=== PATIENT | male | born 1945 | race Caucasian/White ===

== ENCOUNTER 2023-12-08 12:28 | Inpatient (IN) | payer MEDICARE, SELFPAY ==
[2023-12-06] VITALS (7 sets, daily range): BP systolic 116–145; BP diastolic 74–129; PULSE 80–83; BMI 24.8
[2023-12-06 18:35] LABS: % Basophils 0.6 % (0-2); % Eosinophils 0.8 % (0-6); % Immature Granulocytes 0.3 % (0-0.5); % Lymphocytes 16.5 % (20.5-51.1); % Monocytes 6.6 % (1.7-9.3); % Neutrophils 75.2 % (42.2-75.2); Absolute Basophils 0.1 10^3/uL (0-0.2); Absolute Eosinophils 0.1 10^3/uL (0-0.7); Absolute Lymphocytes 1.4 10^3/uL (1.2-3.4); Absolute Monocytes 0.6 10^3/uL (0.1-0.6); Absolute Neutrophils 6.5 10^3/uL (1.4-6.5); Hematocrit 49.8 % (39.0-52.0); Hemoglobin 16.8 g/dL (13.0-18.0); Mean Corp Hgb Conc. 33.7 g/dL (33.0-37.0); Mean Corpuscular Hgb 30.3 pg (27.0-31.0); Mean Corpuscular Volume 89.7 fL (80.0-94.0); Nucleated Red Blood Cells % 0 % (-); Platelet Count 248 10^3/uL (130-400); Red Blood Cell Count 5.55 10^6/uL (4.70-6.10); Red Cell Dist. Width 13.2 % (11.5-14.5); White Blood Cell Count 8.7 10^3/uL (4.8-10.8)
[2023-12-06 18:52] LABS: ALT (SGPT) 26 U/L (0-50); AST (SGOT) 29 U/L (17-59); Albumin 4.9 g/dl (3.5-5.0); Alkaline Phosphatase 104 U/L (38-126); Blood Urea Nitrogen 19 mg/dl (9-20); Calcium 10.2 mg/dl (8.4-10.2); Carbon Dioxide 22 mmol/L (22-30); Chloride 101 mmol/L (98-107); Glucose 102 mg/dl (70-99); Potassium 4.5 mmol/L (3.5-5.1); Sodium 140 mmol/L (135-145); Total Bilirubin 1.1 mg/dl (0.2-1.3); Total Protein 7.5 g/dl (6.3-8.2); eGFR 47.65
[2023-12-06 19:02] LABS: Troponin I < 0.012 ng/ml
--- NOTE | 2023-12-06 19:16 | EDRN ---
cousin states 'I need you to know that Zeus has been sleeping for 36 hours more recently'
Pt alert and awake in waiting area. Family with pt. No acute distress.
--- NOTE | 2023-12-06 20:19 | ED.GENMED ---
History of Present Illness
General
Chief Complaint: Dizziness
Source: patient and family
Time Seen by Provider: 12/06/23 20:05
History of Present Illness
History of Present Illness:
78-year-old male presents emergency department in the presence of his cousin who also offers history with complaints of dizziness that he specifically describes as 'lightheadedness', also described as feeling like he might pass out. He denies a
sense of spinning or movement. He noticed it first yesterday while sitting in the car and it resolved shortly after. Then, around 11 AM today the sense of lightheadedness was much more intense and longer lasting. He denies associated headache,
numbness, tingling, change in vision, change in speech, a sense of imbalance, chest pain, dyspnea, abdominal pain, back pain. He denies recent trauma or falls. Patient, when asked, notes that he does have mild bilateral posterior neck discomfort
described as 'stiff' that he has noticed since today. He denies fever, chills, nausea, vomiting, or other complaints. The lightheadedness seems to be worse when he stands up but is still persistent while sitting down, relatively unchanged with
head position.
Past History
Past History
ED Past Medical History: Other (PAD, A-fib, hypertension, hypercholesterolemia)
ED Past Surgical History: Orthopedic and Other (Carotid artery stent bilateral, colectomy partial, peripheral arterial stent placement lower extremity bilaterally)
Social History
Tobacco: Former smoker
Alcohol: Occasional
Drug: None
Personal:
Living: with family
Phy Exam
Physical Exam
Physical Exam:
GENERAL: Alert , in no apparent distress
EYE: pupils equal and reactive, no nystagmus, EOMI, no photophobia
NECK: Supple, no significant adenopathy, no bruit, full range of motion, no meningismus.
ENT: o/p clr, mmm.
CARDIAC: Regular rate and rhythm .
LUNGS: Clear breath sounds bilaterally, no acute respiratory distress, no wheezes/rales/rhonchi
ABDOMEN: Soft, without focal tenderness, no r/g, no cvat
NEUROLOGICAL: Alert and oriented, no focal neuro deficits, [id number]-ye-[id number] normal, motor 5 out of 5, sensory intact, cranial nerves II through XII
SKIN: Warm and dry, skin intact.
MUSCULOSKELETAL: No edema, well perfused.
PSYCH: Normal and appropriate interaction.
Course
Orders/Labs/Results
Orders:
Orders
12/06/23 18:14
Electrocardiogram (*1) Urgent
Reason for Study: Chest Pain
EKG- Treatment ONCE
12/06/23 18:27
Complete Blood Count/With Diff Urgent
Comprehensive Metabolic Panel Urgent
Troponin I Urgent
12/06/23 20:19
Electrocardiogram (*1) Urgent
Reason for Study: Vertigo / Dizzy
EKG- Treatment ONCE
12/06/23 20:23
0.9% Sodium Chloride 500 ml [Nss] 500 ml IV BOLUS
Nursing to Place Non Medication Order As Directed
Physician Order: orthostatics please
Above order entered?: Yes
12/06/23 22:38
Urinalysis Reflex To Culture Urgent
Date Specimen was Collected: 12/06/23
Time Specimen was Collected: 20:49
Urine Microscopic Reflex Cult Urgent
Urine Culture Urgent
NUVIA Source: U
Specimen Description:
Date Specimen was Collected: 12/06/23
Time Specimen was Collected: 20:49
12/06/23 23:00
Flush (0.9% Sodium Chloride) [Flush (Nss)] See Dose Instructions IV PER PROTOCOL
12/06/23 23:16
Admit/Transfer Patient As Directed
Co-Sign Provider:
Level of Care: Observation services
Assign to:: Telemetry
Physician / Group: lindsay
Diagnosis: near syncope
Reason for Telemetry: Syncope
Date to Stop Telemetry: 12/08/23
Time to Stop Telemetry: 11:00
PRN Pain Medication Management As Directed
May give lesser potent ordered pain med per pt: Yes
preference::
Protocol:: Medication orders for pain may be administered in a
manner that supports deferring to patient preference
when the pt is:
- Requesting an ordered lesser potent pain medication.
Least to most potent pain medications are defined
as: acetaminophen < NSAID < tramadol < opioids
(morphine, oxycodone, hydromorphone).
- Requesting a lesser dose of the same medication IF
ORDERED.
- Requesting a less intrusive route of administration
if both routes are prescribed by the provider (PO <
IV).
12/06/23 23:17
Code Status As Directed
Resuscitation Status: Do not resuscitate
Reached after discussion with pt or family/Healthcare POA: Yes
DNR Bracelet Application ONCE
12/07/23 00:16
0.9% Sodium Chloride 1000 ml [Nss] 1,000 ml IV 60 mls/hr
Bisacodyl [Dulcolax] 10 mg RECTAL [id number] PRN
Docusate W/Senna [Senokot-S] 1 tablet PO BIDPRN PRN
Polyethylene Glycol Powder [Miralax] 17 grams PO DAILYPRN PRN
Tetrahydrozoline 0.05% [Visine Eye Drops] 1 drop BOTH EYES TIDPRN PRN
12/07/23 00:16
Activity As Directed
Activity Level: As Tolerated
Vital Signs As Directed
Frequency: Per unit guidelines
12/07/23 Breakfast
Cholesterol Lowering
At Your Request: Full Participation
Cholesterol Lowering: Sodium, 2 Gram
Basic Metabolic Panel IN AM
Cardiovascular Evaluation IN AM
Complete Blood Count/No Diff IN AM
TSH IN AM
Physical Therapy Consult [Pt Eval And Treat] IN AM
Activity Level: As Tolerated
12/07/23 07:00
Orthostatic Vital Signs As Directed
Orthostatic VS Frequency: BID
12/07/23 08:00
Apixaban [Eliquis] 5 mg PO BID
Clopidogrel Bisulfate [Plavix] 75 mg PO DAILY
Pravastatin Sodium [Pravachol] 80 mg PO DAILY
12/07/23 22:00
Mirtazapine [Remeron] 7.5 mg PO HS
Tamsulosin [Flomax] 0.4 mg PO HS
Venlafaxine Extended Release [Effexor Xr] 150 mg PO HS
12/08/23 11:00
DC Protocol for Telemetry ONCE
Abnormal Lab Results
12/06/23 12/06/23
18:27 22:38
Lymphocytes % 16.5 L %
(20.5-51.1)
Creatinine 1.5 H mg/dL
(0.7-1.3)
Glucose 102 H mg/dl
(70-99)
Urine Ketones 2+ A
(Negative)
Ur Occult Blood Reflex Trace A
(Negative)
Urine Bilirubin 1+ A
(Negative)
Leukocyte Esterase Rfl 1+ A
(Negative)
Urine WBC (Reflex) 11-15 A /HPF
(0-5)
Urine Bacteria (Reflex) Many A
(Negative)
Urine Albumin (Reflex) 1+ A
(Neg - Trace)
12/06/23 18:27
12/06/23 18:27
Vital Signs
Initial and Last Documented VS:
Initial Vital Signs
Temp Pulse Resp BP Pulse Ox
97.6 F 92 16 116/79 99
12/06/23 18:16 12/06/23 18:16 12/06/23 18:16 12/06/23 18:16 12/06/23 18:16
Last Documented Vital Signs
Temp Pulse Resp BP Pulse Ox
98.6 F 81 16 129/83 95
12/07/23 00:15 12/07/23 00:15 12/07/23 00:15 12/07/23 00:15 12/07/23 00:15
*Critical Care Note
Total Time (30-74mins, 75-104mins- exclusive of procedures): Not Applicable
Update Note
Update Note:
Patient presents to the Emergency Department with lightheadedness____
Number and Complexity of Problems Addressed at the Encounter
� Chronic conditions affecting care:
� Acute Exacerbation and/or Progression of Chronic Illness:
� Differential Diagnosis includes: But not limited to anemia, volume depletion, electrolyte disorder, arrhythmia, etc. etc.
Amount and/or Complexity of Data to be Reviewed and Analyzed
� I performed an independent evaluation of and my interpretation is:
EKG: Read by me, normal sinus rhythm, normal rate, LAD, no acute ischemia
CT:
Xrays:
Laboratory Studies: Generally unremarkable
Other:
� Review of other/old records reveals:
� Clinical information was obtained by an independent historian: Phong Covarrubias who is bedside
� Prescriptions/Medications Considered but not given:
� Further testing considered but not performed:
Risk of Complications and/or Morbidity or Mortality of Patient Management
� Social determinants of health affecting care:
� Discussion with other providers (PCP, Hospitalists, Consultants, etc):
� Escalation of care including admission/observation vs risk of discharge considered: Patient tried to stand up for orthostatics and was unable to do so due to severe lightheadedness and near syncope. Of note, patient does take
lisinopril for his blood pressure although he denies any recent changes to the dose. Case discussed with hospitalist via [place] text recommendation for admission, telemetry monitoring, IV fluids, consideration of blood pressure medication
modification.
ED Attending Note
-
Portions of this chart may have been created with voice recognition software.� Occasional wrong word or��sound alike� substitutions may have occurred due to the inherent limitations of voice recognition software.
Discharge Plan
Departure
Patient Disposition: Admit
Date of Disposition: 12/06/23
Time of Disposition: 22:38
Admit to: Telemetry
Presentation/result/management discussed w/ accepting MD/DO: Hospitalist
Condition: Fair
Discharge Problem:
Dizziness
Interventions
Interventions:
*Risk Screen - Suicide Last Done: 12/06/23 18:15
*General Assessment Last Done: 12/06/23 20:03
*Neglect/Abuse Screening Last Done: 12/06/23 23:45
ED- Fall Risk Assessment Last Done: 12/06/23 20:57
*Nursing Disposition Last Done: 12/06/23 23:57
ED- Neurological Assessment Last Done: 12/06/23 20:57
ED- Cardiac Assessment Last Done: 12/06/23 20:57
ED Swallowing Screen Last Done: 12/06/23 22:47
Discharge Date and Time
Discharge Date/Time: 12/06/23 23:57
[2023-12-06] MEDS: NSS 500 IV (21:10)
--- NOTE | 2023-12-06 21:10 | ED TECH ---
While doing the Orthostatic vitals the PT told this PCT that he had been feeling continuously dizzy. I informed the PT to let me know when it felt worse or different than what brought him in. Upon doing Supine position PT said he felt the same. When
this PCT sat him up in the bed he said he felt slightly more dizzy, but when he swung his legs to sit on the side of the bed he felt worse and more lightheaded. I gave him time between the set to stand and as soon as the blood pressure cuff went
off, the PT repeated something his visitor said about how he was feeling and said he felt extremely lightheaded, PT's face went red and this PCT guided him right back to the bed to sit on the edge, called PAWAN Hernandez to come in, got PT in bed and let
the blood pressure finish cycling, and kept the PT in an upright position. RN informed Dr. Arce
--- NOTE | 2023-12-06 22:39 | HPS.HSE ---
Addendum entered and electronically signed by Dami Gomez DO 12/06/23 23:53:
Patient seen and examined independently. Agree with findings and plan as set forth by STEFFEN Shen.
Patient is a 78ty M with PMH significant for A-Fib, ASCVD, HTN and BPH who presents to ED complaining of lightheadedness. Patient denies any recent illness / med changes / etc. Patient traveled to [place] from [place] recently. Today he noted a sense of
lightheadedness around 11AM. He had no room spinning, dizziness, etc. No other associated symptoms including palpitations, chest pain or dyspnea. No fevers / chills. Patient denies any prior history of similar symptoms. Evaluation in the ED was
unremarkable; however, patient continues to experience significant lightheadedness especially with standing.
Ass:
Lightheadedness
ASCVD
Paroxysmal Atrial Fibrillation
LYDIA v CKD
Benign Hypertension
Plan:
Observe overnight for further evaluation and treatment.
No clear etiology of symptoms is apparent.
Monitor on tele overnight.
IVFs overnight.
PT / OT evaluation in the AM.
Follow for gait stability / changes in symptoms.
Continue usual outpatient med regimen without changes.
Original Note:
Family Physician
-
Family Physician: NOT KNOW UNKNOWN - PT DOES
Chief Complaint
-
lightheaded
History of Present Illness
78-year-old male with PMH for PAD,atrial fib, carotid stents, HTN, depression, HLD,BPH presented to us with lightheadedness.he felt this morning and it passed.later on in the evening, he felt lightheaded s he as going to pass out. he was not able to
stand. the lightheaded,persisted even when he sitting down. he felt sob. denied MEDINA. He denies a sense of spinning or movement. He denies associated headache, numbness, tingling, change in vision, change in speech, a sense of imbalance, chest
pain, dyspnea, abdominal pain, back pain. He denies recent trauma or falls. He denies fever, chills, nausea, vomiting, or other complaints.
EKG with NSR. admitting for further management.
Medical History
Past Medical History
Past Medical History: Reports Other
Additional Past Medical History:
HTN
HLD
PAD
atrial fib
Past Surgical History: Reports Other
Additional Past Surgical History:
carotid stent
b/l LE stents
Social History
Tobacco: Former Smoker
Alcohol: None
Personal:
Living: With Family
Family History
Family History: Not pertinent
Allergies / Home Medications
Allergies reflects when Allergies were last updated in [employer]
Home Medications with original date entered in [employer]
Allergy/Medication List:
Allergies
Allergy/AdvReac Type Severity Reaction Status Date / Time
acetaminophen [From Percocet] Allergy Tongue Verified 12/06/23 20:02
Swelling
codeine Allergy Tongue Verified 12/06/23 20:02
Swelling
ezetimibe [From Zetia] Allergy Tongue Verified 12/06/23 20:02
Swelling
glycopyrrolate Allergy Tongue Verified 12/06/23 20:02
Swelling
guaifenesin Allergy Tongue Verified 12/06/23 20:02
Swelling
ketorolac [From Toradol] Allergy Tongue Verified 12/06/23 20:02
Swelling
oxycodone [From Percocet] Allergy Tongue Verified 12/06/23 20:02
Swelling
simvastatin [From Zocor] Allergy Tongue Verified 12/06/23 20:02
Swelling
Home Medications
Eliquis 1 tab PO BID 12/06/23
clopidogrel 75 mg tablet 75 mg PO BID 12/06/23
evolocumab 140 mg/mL subcutaneous pen injector (Repatha SureWuick) 140 mg SC Q2W 12/06/23
lisinopril 20 mg tablet 20 mg PO DAILY 12/06/23
loperamide 2 mg capsule 2 mg PO Q6HPRN PRN diarrhea 12/06/23
mirtazapine 15 mg tablet 7.5 mg PO HS 12/06/23
pravastatin 80 mg tablet 80 mg PO DAILY 12/06/23
tamsulosin 0.4 mg capsule 0.4 mg PO HS 12/06/23
tetrahydrozoline 0.05 % eye drops (Visine) 1 drp BOTH EYES TIDPRN PRN dry eyes 12/06/23
venlafaxine 150 mg capsule,extended release 24 hr 150 mg PO HS 12/06/23
Review of Systems
-
Constitutional: Reports No Symptoms
EENT: Reports No Symptoms
Respiratory: Reports No Symptoms
Cardiac: Reports No Symptoms
Abdomen/GI: Reports No Symptoms
: Reports No Symptoms
Musculoskeletal: Reports No Symptoms
Skin: Reports No Symptoms
Neurological: Reports Other (lightheaded)
Endocrine: Reports No Symptoms
Hematologic/Lymphatic: Reports No Symptoms
Psych: Reports No Symptoms
Physical Exam
Vital Signs
Vital Signs
Temp Pulse Resp BP Pulse Ox
98.5 F 95 21 133/85 98
12/06/23 20:06 12/06/23 20:00 12/06/23 20:00 12/06/23 20:00 12/06/23 20:08
Physical Exam
General: Well Developed, Well Nourished and No Apparent Distress
HEENT: NormoCephalic, Moist mucous membranes and Atraumatic
Respiratory: Clear
Cardiac: S1/S2 and Regular Rhythm; No Murmur or Rub
GI: Soft, Non Tender, Non Distended and Normal Bowel Sounds; No Organomegaly
Rectal: Deferred by Provider
Musculoskeletal: No Clubbing, No Cyanosis and No Edema
Skin: No Rash
Neuro: AO x 3 and Nonfocal/grossly intact
Psych: Calm
Laboratory Results
-
12/06/23 18:27
12/06/23 18:27
Laboratory Results
Total Bilirubin 1.1 mg/dl (0.2-1.3) 12/06/23 18:27
AST 29 U/L (17-59) 12/06/23 18:27
ALT 26 U/L (0-50) 12/06/23 18:27
Alkaline Phosphatase 104 U/L (38-126) 12/06/23 18:27
Troponin I < 0.012 ng/ml 12/06/23 18:27
Data Reviewed
-
Lab Data: Labs Reviewed by me
Impression/Plan
-
#dizzy/lightheaded unclear cause
-obtain orthostatic BP
-negative orthostatics in ER
-fluids continued
-EKG NSR
#acute kidney injury likely dehydration
-cr 1.5
-NS continued
-BMP in am
#hxt of PAD/carotid stents
-b/l peripheral stents in place
-Plavix continued
#hxt of paroxysmal atrial fib
-EKG with NSR
-eliquis continued
#Essential HTN
-Bp stable
-hold lisinopril due to LYDIA
#insomnia/depression
-Mirtazapine for sleep
-venlafaxine continued
#HLD
-statin
#BPH
-Flomax
#DVT prophylaxis
-Eliquis
#CODE status
-DNR
[2023-12-06 22:45] LABS: Urine Albumin 1+ (Neg - Trace); Urine Bilirubin 1+ (Negative); Urine Character Clear (Clear); Urine Color Yellow; Urine Glucose Negative (Negative); Urine Ketone 2+ (Negative); Urine Leukocyte 1+ (Negative); Urine Nitrite Negative (Negative); Urine Occult Blood Trace (Negative); Urine Specific Gravity 1.025 (<1.030); Urine Urobilinogen Negative (Neg - 1+)
[2023-12-06 22:51] LABS: Urine Bacteria Many (Negative); Urine Red Blood Cell 0-2 /HPF (0-2)
[2023-12-07] VITALS (8 sets, daily range): BP systolic 112–144; BP diastolic 64–92; PULSE 79–94; O2SAT 96; BMI 24.8
[2023-12-07] MEDS: NSS 1000 IV ×2 (00:53→17:19)
[2023-12-07 05:48] LABS: Hematocrit 44.6 % (39.0-52.0); Hemoglobin 15.1 g/dL (13.0-18.0); Mean Corp Hgb Conc. 33.9 g/dL (33.0-37.0); Mean Corpuscular Hgb 30.4 pg (27.0-31.0); Mean Corpuscular Volume 89.7 fL (80.0-94.0); Mean Platelet Volume 9.4 fL (7.4-10.4); Platelet Count 214 10^3/uL (130-400); Red Blood Cell Count 4.97 10^6/uL (4.70-6.10); Red Cell Dist. Width 13.2 % (11.5-14.5); White Blood Cell Count 7.1 10^3/uL (4.8-10.8)
[2023-12-07 06:13] LABS: Blood Urea Nitrogen 22 mg/dl (9-20); Calcium 9.6 mg/dl (8.4-10.2); Carbon Dioxide 24 mmol/L (22-30); Chloride 102 mmol/L (98-107); Estimated Creatinine Clearance 62 ml/min; Glucose 85 mg/dl (70-99); HDL Cholesterol 38 mg/dl; LDL Cholesterol, Calculated 87 mg/dl; Potassium 4.9 mmol/L (3.5-5.1); Sodium 137 mmol/L (135-145); Total Cholesterol 158 mg/dl (50-199); Triglyceride 169 mg/dl (10-149); Very Low Density Lipoprotein 33 mg/dl (0-30); eGFR > 60.00
[2023-12-07 06:44] LABS: TSH 3.11 uIU/ml (0.47-4.68)
[2023-12-07] MEDS: PLAVIX 75 MG PO (08:09)
[2023-12-07] MEDS: ELIQUIS 5 MG PO ×2 (08:09→21:32)
[2023-12-07] MEDS: PRAVACHOL 80 MG PO (08:09)
[2023-12-07] MEDS: IMODIUM 2 MG PO (13:22)
--- NOTE | 2023-12-07 16:11 | W.PN.HOSP.TC ---
Today's Communication/Plan
-
See plan
Assessment / Plan
Assessment / Plan
Impression:
Presentation with lightheadedness suspected secondary to orthostasis in the settings of LYDIA and dehydration.
LYDIA likely prerenal with chronic loose stools.
ASCVD.
Paroxysmal atrial fibrillation.
Essential hypertension.
PAD including lower extremity and carotid artery status post stenting.
Plan:
Lightheadedness without syncope.
Suspect in the settings of dehydration with LYDIA
Patient denies any loss of consciousness
Neurologic examination with no focal findings
CT scan of the head with no acute abnormalities
Improved with IV fluid bolus.
Will check echocardiogram and carotid ultrasound for completeness.
Paroxysmal atrial fibrillation baseline rate controlled while patient is not on any AV anaya agents or arrhythmics.
Monitor.
Continue anticoagulation with Eliquis.
LYDIA improving with IV fluid bolus.
Monitor for retention
PT assessment
Anticipated Discharge: 24 - 48 hours
Subjective/Interval History
-
Date of Service: December 07, 2023
Objective Data
-
Labs:
Laboratory Results
12/07/23
05:21
WBC 7.1
Hgb 15.1
Hct 44.6
Plt Count 214
Sodium 137
Potassium 4.9
Chloride 102
Carbon Dioxide 24
BUN 22 H
Creatinine 1.0
Glucose 85
Calcium 9.6
Vital Signs:
Vital Signs
Temp Pulse Resp BP Pulse Ox
98.5 F 84 17 127/64 95
12/07/23 11:00 12/07/23 11:00 12/07/23 11:00 12/07/23 11:00 12/07/23 11:00
I&O
12/06/23 12/07/23 12/08/23
06:59 06:59 06:59
Intake Total 480 / 480
Balance 480 / 480
Physical Exam
-
General: Well Developed and No Apparent Distress
HEENT: Normocephalic, Atraumatic and Moist Mucous Membranes
Respiratory: Clear to Auscultation
Cardiac: Regular Rhythm and S1/S2; Negative Murmur, Rub or Gallop
GI: Soft, Nontender, Nondistended and Normal Bowel Sounds; Negative Organomegaly
Rectal: Deferred by Provider
Musculoskeletal: No Clubbing, No Cyanosis and No Edema
Skin: Negative Rash
Neuro: Nonfocal/Grossly Intact
--- NOTE | 2023-12-07 16:15 | CARDSERVLU ---
Echocardiogram with [facility] completed after protocol screening completed. Allergies verified.
Patent IV site: ___R AC__
IV site flushed with 0.9% NaCl pre and post administration.
Diluted bolus method utilized to enhance visualization of ventricular peters.
Total volume given: _2.5___ mL
Patient tolerated all procedures well without complications.
--- NOTE | 2023-12-07 16:47 | CM ---
Addendum entered by Yudelka Alarcon 12/08/23 12:51:
Met with patient to discuss discharge plan
Plan: Discharge from hospital today; Friend will transport; plans to return to home in [place] weather permitting
Family Physician verified; updated with Admissions office:
Shane Romero MD
[address], [address]
[place] [address]

Original Note:
Alert awake oriented patient who lives in [place] and is visiting here and needed to come to hospital . He is independent in all activities of daily living.He is visiting family. RODRIGUEZ letter given explained and RODRIGUEZ signed on chart.
No VN hx /No SNF hx
Pharmacy [facility]
PCP DR Poole
PLAN Home no anticipated needs
[2023-12-07] MEDS: EFFEXOR XR 150 MG PO (21:32)
[2023-12-07] MEDS: FLOMAX 0.4 MG PO (21:32)
[2023-12-07] MEDS: REMERON 7.5 MG PO (21:32)
[2023-12-08 02:56] VITALS: BP 134/80
[2023-12-08] MEDS: PRAVACHOL 80 MG PO (07:25)
[2023-12-08] MEDS: ELIQUIS 5 MG PO (07:25)
[2023-12-08] MEDS: PLAVIX 75 MG PO (07:25)
[2023-12-08 08:08] VITALS: BP 131/73
[2023-12-08 11:19] VITALS: BP 146/76; PULSE 66
--- NOTE | 2023-12-08 11:25 | PTOTSP ---
Pt reports feeling fine. No longer lightheaded. He is able to get OOB and ambulate in hallway without an assistive device with steady gait. No further acute PT needs at this time. Will sign off.
[2023-12-08 11:30] VITALS: BP 144/84
--- NOTE | 2023-12-08 12:30 | W.DS.TRANS ---
DC Summary - Jewel Gauger
-
Discharge Instructions:
Sleep Apnea Risk Intermediate
Discharge Diagnosis/Procedures LYDIA, dehydration, presyncope
Diet Regular
Instructions:
Stand-Alone Forms:
Changes to Home Medications: No
Discharge Medications:
DC Medications w/original date entered in [employer]
apixaban 5 mg tablet (Eliquis) 5 mg PO BID Blood Clot Prevention/Tx 12/06/23
clopidogrel 75 mg tablet 75 mg PO DAILY Blood Clot Prevention/Tx 12/06/23
evolocumab 140 mg/mL subcutaneous pen injector (Repatha SureClick) 140 mg SC Q2W High Cholesterol 12/06/23
lisinopril 20 mg tablet 20 mg PO DAILY Blood Pressure 12/06/23
loperamide 2 mg capsule 2 mg PO Q6HPRN PRN diarrhea 12/06/23
mirtazapine 15 mg tablet 7.5 mg PO HS Depression 12/06/23
pravastatin 80 mg tablet 80 mg PO DAILY High Cholesterol 12/06/23
tamsulosin 0.4 mg capsule 0.4 mg PO HS Urinary Issue 12/06/23
tetrahydrozoline 0.05 % eye drops (Visine) 1 drp BOTH EYES TIDPRN PRN dry eyes 12/06/23
venlafaxine 150 mg capsule,extended release 24 hr 150 mg PO HS Depression 12/06/23
Home Medication Changes
Pending Results: No
--- NOTE | 2023-12-08 13:00 | CM ---
Met with patient to discuss discharge plan
Plan: Discharge from hospital today; Friend will transport; plans to return to home in [place] weather permitting
Family Physician verified; updated with Admissions office:
Shane Romero MD
[facility], [address]
[place] [address]
== END 2023-12-08 14:48 | disposition home or self-care (01) | DRG 641 ==
LOC: 3 WEST ACU 12:28
PROVIDERS: Emergency Medicine; Registered Nurse; ADMITTING PHYSICIAN Hospitalist; ATTENDING PHYSICIAN Internal Medicine; EMERGENCY PHYSICIAN Emergency Medicine
DX: E86.0 Dehydration (principal); N17.9 Acute kidney failure, unspecified; I73.9 Peripheral vascular disease, unspecified; I10 Essential (primary) hypertension; F32.A Depression, unspecified; Z95.820 Peripheral vascular angioplasty status with implants and grafts; Z95.828 Presence of other vascular implants and grafts; K52.9 Noninfective gastroenteritis and colitis, unspecified; R42 Dizziness and giddiness; I25.10 Atherosclerotic heart disease of native coronary artery without angina pectoris; Z66 Do not resuscitate; I48.0 Paroxysmal atrial fibrillation; E78.00 Pure hypercholesterolemia, unspecified; R55 Syncope and collapse; N40.0 Benign prostatic hyperplasia without lower urinary tract symptoms; G47.00 Insomnia, unspecified; R07.9 Chest pain, unspecified; R79.89 Other specified abnormal findings of blood chemistry; Z79.01 Long term (current) use of anticoagulants; Z79.02 Long term (current) use of antithrombotics/antiplatelets; Z79.899 Other long term (current) drug therapy; Z87.891 Personal history of nicotine dependence; Z88.5 Allergy status to narcotic agent; Z88.6 Allergy status to analgesic agent; Z88.8 Allergy status to other drugs, medicaments and biological substances
CPT/HCPCS: 70450; 80048; 80053; 80061; 81003; 81015; 84443; 84484; 85025; 85027; 87086; 87147; 87186; 93005; 93306; 93880; 97162; 97530; 99285; Q9950